=== PATIENT | male | born 1980 | race African-American/Black ===

== ENCOUNTER 2023-11-18 22:31 | Emergency (ER) | payer MEDICAID ==
[~2023-11-18] VITALS: Ht 177.8 cm; Wt 73.0 kg
[2023-11-18 22:38] VITALS: O2SAT 100
[2023-11-19] MEDS: ACETAMINOPHEN 325MG TABLET PO ONE (02:17)
[2023-11-19 04:17] VITALS: BP 137/71; PULSE 77; RESP 20; TEMP 36.78072; O2SAT 100
== END 2023-11-19 04:19 | disposition home or self-care (01) ==
LOC: ER 22:31
DX: S20.212A Contusion of left front wall of thorax, initial encounter (principal); S09.8XXA Other specified injuries of head, initial encounter; F41.9 Anxiety disorder, unspecified; Y08.89XA Assault by other specified means, initial encounter; Y93.89 Activity, other specified; Y92.89 Other specified places as the place of occurrence of the external cause; Y99.8 Other external cause status
CPT/HCPCS: 71045; 99284